=== PATIENT | female | born 1985 | race Two or more races ===

== ENCOUNTER 2022-04-08 10:24 | Emergency (ER) | payer OTHER ==
[~2022-04-08] VITALS: Ht 152.4 cm; Wt 61.2 kg
[2022-04-08] MEDS ORDERED: KETO10TA2 PO (13:24)
[2022-04-08] MEDS ORDERED: AMOX-CLAV 875-1 EACH PO (13:24)
== END 2022-04-08 14:27 | disposition home or self-care (01) ==
LOC: ER 10:24
DX: H60.91 Unspecified otitis externa, right ear (principal)